=== PATIENT | male | born 1990 | race Caucasian/White ===

== ENCOUNTER → 2023-10-30 | Outpatient (CLI) | payer BC ==
[~2023-10-30] MED LIST: AZIT250 PO; IBUP600 PO; TETR250; TYLENOL PRN; Zofran4 MG PO
[2023-10-30 13:34] LABS: BASOPHILS ABSOLUTE AUTO 0.04 K/mm3 (0.00-0.23); BASOPHILS PERCENT AUTO 1 % (0-2); EOSINOPHILS ABSOLUTE AUTO 0.08 K/mm3 (0.00-0.68); EOSINOPHILS PERCENT AUTO 1 % (0-6); Hematocrit 43.4 % (37.0-53.0); IMMATURE GRAN ABSOLUTE AUTO 0.01 K/mm3 (0.00-0.10); IMMATURE GRAN PERCENT AUTO 0 % (0-1); LYMPHOCYTES ABSOLUTE AUTO 1.48 K/mm3 (0.84-5.20); LYMPHOCYTES PERCENT AUTO 23 % (21-46); MONOCYTES ABSOLUTE AUTO 0.47 K/mm3 (0.16-1.47); MONOCYTES PERCENT AUTO 7 % (4-13); Mean Corpuscular HGB 29.5 pg (26.0-34.0); Mean Corpuscular HGB Conc 34.6 g/dL (31.5-36.5); Mean Corpuscular Volume 85 fL (80-100); NEUTROPHILS ABSOLUTE AUTO 4.44 K/mm3 (1.96-9.15); NEUTROPHILS PERCENT AUTO 68 % (41-73); Platelet Count 249 K/mm3 (150-400); RDW Coefficient Variation 12.1 % (11.7-14.2); RDW Standard Deviation 37.9 fL (35.1-46.3); Red Blood Cell Count 5.08 M/mm3 (4.30-5.90); White Blood Cell Count 6.52 K/mm3 (4.00-11.30)
[2023-10-30 15:05] LABS: Albumin, Blood 3.9 g/dL (3.4-5.0); Albumin/Globulin Ratio 1.1 (0.8-1.8); Bilirubin, Total 0.7 mg/dL (0.1-1.0); Bun/Creatinine Ratio 15.8 (12.0-20.0); Calcium, Blood 8.7 mg/dL (8.5-10.1); Creatinine, Blood 1.01 mg/dL (0.60-1.20); Globulin, Blood 3.6 g/dL (2.2-4.0); Potassium, Blood 3.6 mmol/L (3.5-5.5); Total Protein, Blood 7.5 g/dL (6.4-8.2)
== END | disposition home or self-care (01) ==
LOC: LAB 10:50 → LAB SHORT 10:50
PROVIDERS: Family Medicine
DX: R10.9 Unspecified abdominal pain (principal)
CPT/HCPCS: 80053; 83690; 85025

== ENCOUNTER 2023-12-15 13:12 | Observation (INO) | payer BC ==
[~2023-12-15] VITALS: Ht 188 cm; Wt 98.0 kg
[2023-12-15] MEDS ORDERED: Ketorolac Tromethamine 15mg Vial IV ONE (13:35)
[2023-12-15] MEDS ORDERED: Ondansetron HCl 2 MG / ML 2ML Vial IV ONE ×2 (13:35→16:45)
[2023-12-15 14:50] LABS: BASOPHILS ABSOLUTE AUTO 0.05 K/mm3 (0.00-0.23); BASOPHILS PERCENT AUTO 0 % (0-2); EOSINOPHILS PERCENT AUTO 0 % (0-6); Hematocrit 43.4 % (37.0-53.0); Hemoglobin 14.8 g/dL (13.5-17.5); IMMATURE GRAN ABSOLUTE AUTO 0.06 K/mm3 (0.00-0.10); IMMATURE GRAN PERCENT AUTO 0 % (0-1); LYMPHOCYTES ABSOLUTE AUTO 0.86 K/mm3 (0.84-5.20); LYMPHOCYTES PERCENT AUTO 5 % (21-46); MONOCYTES ABSOLUTE AUTO 0.85 K/mm3 (0.16-1.47); MONOCYTES PERCENT AUTO 5 % (4-13); Mean Corpuscular HGB 29.4 pg (26.0-34.0); Mean Corpuscular HGB Conc 34.1 g/dL (31.5-36.5); Mean Corpuscular Volume 86 fL (80-100); Mean Platelet Volume 11.1 fL (9.1-12.4); NEUTROPHILS ABSOLUTE AUTO 15.83 K/mm3 (1.96-9.15); NEUTROPHILS PERCENT AUTO 90 % (41-73); Platelet Count 206 K/mm3 (150-400); RDW Coefficient Variation 12.2 % (11.7-14.2); RDW Standard Deviation 38.5 fL (35.1-46.3); Red Blood Cell Count 5.03 M/mm3 (4.30-5.90); White Blood Cell Count 17.65 K/mm3 (4.00-11.30)
[2023-12-15 15:06] LABS: Source, Urine Clean Catch
[2023-12-15 15:09] LABS: Bilirubin, Urine Neg (Neg); Blood, Urine 2+ (Neg); Color, Urine Yellow (P-Yellow); Glucose Qualitative, Urine 1+ (Neg); Ketones, Urine Neg (Neg); Leukocyte Esterase, Urine Neg (Neg); Nitrite, Urine Neg (Neg); Protein, Urine 1+ (Neg); Urobilinogen, Urine NORM (Normal); pH, Urine 6.5 (5.0-8.0)
[2023-12-15 15:16] LABS: Appearance, Urine Hazy (Clear); Bacteria Mod /hpf; Mucus Heavy (0-Heavy); Squamous Epithelial Cells Rare /hpf (Few); White Blood Cells, Urine 0-2 /hpf (0-5)
[2023-12-15 15:17] LABS: Hyaline Casts 0-2 /lpf (0-2)
[2023-12-15 15:18] LABS: Albumin, Blood 3.9 g/dL (3.4-5.0); Bun/Creatinine Ratio 17.6 (12.0-20.0); Calcium, Blood 8.8 mg/dL (8.5-10.1); Creatinine, Blood 0.91 mg/dL (0.60-1.20); Globulin, Blood 3.8 g/dL (2.2-4.0); Total Protein, Blood 7.7 g/dL (6.4-8.2)
[2023-12-15] MEDS ORDERED: NS 1,000 ML IV SCH (15:20)
[2023-12-15] MEDS ORDERED: CefTRIAXone Sodium 1,000 MG in NS 50 ML IV ONE (15:40)
[2023-12-15] MEDS ORDERED: Morphine Sulfate 4 MG/1 ML Injection IV ONE (17:30)
[2023-12-15] MEDS ORDERED: Acetaminophen 325 MG TABLET PO PRN ×2 (18:10→22:10)
[2023-12-15] MEDS ORDERED: FLU VACC QS2023-24(6MOS UP)/PF 60 MCG/0.5 ML SYRINGE IM SCH (18:10)
[2023-12-15] MEDS ORDERED: Ondansetron HCl 2 MG / ML 2ML Vial IV PRN (18:10)
[2023-12-15] MEDS ORDERED: HYDROcodone 5-APAP 325 TAB PO PRN (18:10)
[2023-12-15] MEDS ORDERED: Ketorolac Tromethamine 15mg Vial IV PRN (18:35)
[2023-12-15] MEDS ORDERED: Lactated Ringer's 1,000 ML IV SCH (19:00)
[2023-12-15 20:12] VITALS: BP 133/78
[2023-12-15] MEDS ORDERED: Prochlorperazine Edisylate 10 mg Vial IV PRN (20:55)
[2023-12-15] MEDS ORDERED: Lactobacil 2-S.Thermo-Bifido 1 1 Cap PO SCH (21:00)
[2023-12-15] MEDS ORDERED: Docusate Sodium 100 MG Cap PO SCH (21:00)
[2023-12-15] MEDS ORDERED: Ibuprofen 400 MG Tab PO ONE (22:10)
[2023-12-16] MEDS ORDERED: NS 250 ML IV PRN (03:10)
[2023-12-16 04:52] VITALS: BP 105/68
[2023-12-16 05:49] LABS: BASOPHILS ABSOLUTE AUTO 0.03 K/mm3 (0.00-0.23); BASOPHILS PERCENT AUTO 0 % (0-2); EOSINOPHILS ABSOLUTE AUTO 0.02 K/mm3 (0.00-0.68); EOSINOPHILS PERCENT AUTO 0 % (0-6); Hematocrit 37.8 % (37.0-53.0); Hemoglobin 12.9 g/dL (13.5-17.5); IMMATURE GRAN ABSOLUTE AUTO 0.05 K/mm3 (0.00-0.10); IMMATURE GRAN PERCENT AUTO 0 % (0-1); LYMPHOCYTES ABSOLUTE AUTO 1.15 K/mm3 (0.84-5.20); LYMPHOCYTES PERCENT AUTO 10 % (21-46); MONOCYTES ABSOLUTE AUTO 0.91 K/mm3 (0.16-1.47); MONOCYTES PERCENT AUTO 8 % (4-13); Mean Corpuscular HGB 29.7 pg (26.0-34.0); Mean Corpuscular HGB Conc 34.1 g/dL (31.5-36.5); Mean Corpuscular Volume 87 fL (80-100); Mean Platelet Volume 10.9 fL (9.1-12.4); NEUTROPHILS PERCENT AUTO 81 % (41-73); Platelet Count 149 K/mm3 (150-400); RDW Coefficient Variation 12.5 % (11.7-14.2); RDW Standard Deviation 39.7 fL (35.1-46.3); Red Blood Cell Count 4.34 M/mm3 (4.30-5.90); White Blood Cell Count 11.36 K/mm3 (4.00-11.30)
--- NOTE | 2023-12-16 06:24 | NUR ---
SHIFT SUMMARY NOC PT A/O X 4. PLEASANT AND COOPERATIVE WITH CARE. ADMIT FROM ED WITH PYELONEPHRITIS. PT HAS HAD BILATERAL FLANK PAIN FOR PAST 3 DAYS. CAME INTO ED AFTER EXPERIENCING HEMATURIA. PT CAME UP TO FLOOR WITH S/S OF SEPSIS ELEVATED WBC, TACHYCARDIC, FEBRILE. PT WAS MEDICATED FOR PAIN, NAUSEA, AND FEVER UPON ADMIT TO FLOOR. TYLENOL/IBUPROFEN GIVEN AND FEVER DROPPED FROM 100.3F-98.4F, AND TORADOL GIVEN FOR FLANK PAIN, WHICH PT REPORTED RELIEF. RENAL/ABD CT SCANS CAME BACK NEGATIVE. BLOOD CULTURES ARE PENDING. PT IS INDEPENDENT IN ROOM AND VOIDING WITHOUT PAIN OR HEMATURIA SO FAR. LR @ 150 ML/HR X 1 BAG INFUSING. PT IS CURRENTLY RESTING WITH BED IN LOWEST POSITION, AND CALL LIGHT WITHIN REACH.
[2023-12-16 06:25] LABS: Albumin, Blood 3.1 g/dL (3.4-5.0); Bilirubin, Total 0.9 mg/dL (0.1-1.0); Bun/Creatinine Ratio 15.5 (12.0-20.0); Calcium, Blood 8.1 mg/dL (8.5-10.1); Creatinine, Blood 0.97 mg/dL (0.60-1.20); Globulin, Blood 3.2 g/dL (2.2-4.0); Magnesium, Blood 1.9 mg/dL (1.6-2.4); Potassium, Blood 3.7 mmol/L (3.5-5.5); Total Protein, Blood 6.3 g/dL (6.4-8.2)
[2023-12-16 07:55] VITALS: BP 116/81
[2023-12-16] MEDS ORDERED: VISBIOME 112.51 EACH PO (15:05)
[2023-12-16] MEDS ORDERED: LEVOFLOXACIN750 MG PO (15:06)
[2023-12-16] MEDS ORDERED: CefTRIAXone Sodium 1,000 MG in NS 50 ML IV ONE (15:15)
[2023-12-16 16:14] VITALS: BP 126/84
--- NOTE | 2023-12-16 17:17 | NUR ---
DISCHARGE DISCHARGE MEDICATIONS AND INSTRUCTION EXPLAINED TO PATIETN AND SPOUSE. EVENING ANTIBITIC RUN EARLY PER DR. ESPARZA. THEY STATED UNDERSTANDING. IV REMOVED WITHOUT ISSUE. BELONGINGS WITH PATIENT. PATIENT AMBULATED TO PRIVATE VEHICLE.
[2023-12-16] MEDS ORDERED: CefTRIAXone Sodium 1,000 MG in NS 50 ML IV SCH (18:00)
== END 2023-12-16 16:25 | disposition home or self-care (01) ==
LOC: ER 13:12 → MEDS 13:13
PROVIDERS: Physician Assistant; ADMIT Student in an Organized Health Care Education/Training Program
DX: A41.9 Sepsis, unspecified organism (principal); N12 Tubulo-interstitial nephritis, not specified as acute or chronic; R31.0 Gross hematuria; R31.29 Other microscopic hematuria
CPT/HCPCS: 36415; 74177; 76770; 80053; 81001; 83605; 83735; 85025; 87040; 87086; 93005; 93010; 96361; 96365-59; 96375; 96376; 99285-25; A9270; G0378; J0696; J0780; J1885; J2270; J2405; J7030; J7120; Q9967

== ENCOUNTER 2023-12-19 06:46 | Emergency (ER) | payer BC ==
[~2023-12-19] VITALS: Ht 182.9 cm; Wt 72.6 kg
[~2023-12-19 06:46] MED LIST changes: +LEVOFLOXACIN750 MG PO; +VISBIOME 112.51 EACH PO
[2023-12-19] MEDS ORDERED: NS 1,000 ML IV SCH (07:55)
[2023-12-19 08:13] LABS: Albumin, Blood 3.7 g/dL (3.4-5.0); Albumin/Globulin Ratio 0.9 (0.8-1.8); Bilirubin, Total 0.3 mg/dL (0.1-1.0); Bun/Creatinine Ratio 13.5 (12.0-20.0); Calcium, Blood 9.3 mg/dL (8.5-10.1); Creatinine, Blood 1.04 mg/dL (0.60-1.20); Globulin, Blood 3.9 g/dL (2.2-4.0); Magnesium, Blood 2.4 mg/dL (1.6-2.4); Potassium, Blood 4.1 mmol/L (3.5-5.5); Total Protein, Blood 7.6 g/dL (6.4-8.2)
[2023-12-19 08:34] LABS: Hematocrit 42.8 % (37.0-53.0); Hemoglobin 14.6 g/dL (13.5-17.5); Mean Corpuscular HGB 29.3 pg (26.0-34.0); Mean Corpuscular HGB Conc 34.1 g/dL (31.5-36.5); Mean Corpuscular Volume 86 fL (80-100); Platelet Count 222 K/mm3 (150-400); RDW Coefficient Variation 12.3 % (11.7-14.2); RDW Standard Deviation 38.5 fL (35.1-46.3); Red Blood Cell Count 4.99 M/mm3 (4.30-5.90); White Blood Cell Count 5.88 K/mm3 (4.00-11.30)
[2023-12-19 09:04] LABS: BASOPHILS ABSOLUTE MAN 0.11 K/mm3 (0.00-0.23); BASOPHILS PERCENT MAN 2 % (0-2); EOSINOPHILS ABSOLUTE MAN 0.17 K/mm3 (0.00-0.68); EOSINOPHILS PERCENT MAN 3 % (0-6); LYMPHOCYTES % ATYPICAL MANUAL 2 % (0-0); LYMPHOCYTES ABSOLUTE MAN 1.23 K/mm3 (0.84-5.20); LYMPHOCYTES PERCENT MAN 19 % (21-46); MONOCYTES ABSOLUTE MAN 0.47 K/mm3 (0.16-1.47); MONOCYTES PERCENT MAN 8 % (4-13); NEUTROPHILS ABSOLUTE MAN 3.88 K/mm3 (1.96-9.15); SEG NEUTROPHILS PERCENT MAN 66 % (41-73); TOTAL CELLS COUNTED 100
[2023-12-19] MEDS ORDERED: Cefdinir 300 MG Cap PO ONE (11:15)
[2023-12-19] MEDS ORDERED: Ondansetron HCl 2 MG / ML 2ML Vial IV ONE (11:15)
[2023-12-19] MEDS ORDERED: ONDA4ODT MM (11:18)
[2023-12-19] MEDS ORDERED: CEFD300 PO (11:18)
[2023-12-19 11:30] VITALS: BP 115/82
== END 2023-12-19 11:45 | disposition home or self-care (01) ==
LOC: ER 06:46
PROVIDERS: Student in an Organized Health Care Education/Training Program
DX: R42 Dizziness and giddiness (principal); T36.8X5A Adverse effect of other systemic antibiotics, initial encounter; R07.89 Other chest pain; E86.0 Dehydration; R00.1 Bradycardia, unspecified; Z95.810 Presence of automatic (implantable) cardiac defibrillator; Z88.2 Allergy status to sulfonamides; Z87.440 Personal history of urinary (tract) infections
CPT/HCPCS: 71046; 80053; 83735; 83880; 84484; 85025; 93005; 93010; 96361; 96374; 99285-25; A9270; J2405; J7030

== ENCOUNTER 2025-10-11 19:45 | Emergency (ER) | payer OTHER, BC ==
[~2025-10-11] VITALS: Ht 188 cm; Wt 97.5 kg
[~2025-10-11 19:45] MED LIST changes: +CEFD300 PO; +ONDA4ODT MM
[2025-10-11 20:45] VITALS: BP 139/89
== END 2025-10-11 20:53 | disposition home or self-care (01) ==
LOC: ER 19:45
DX: T25.222A Burn of second degree of left foot, initial encounter (principal); Z79.899 Other long term (current) drug therapy; X19.XXXA Contact with other heat and hot substances, initial encounter
CPT/HCPCS: 99283